=== PATIENT | female | born 1945 | race Caucasian/White ===

== ENCOUNTER 2022-07-15 23:37 | Emergency (ER) | payer OTHER, MEDICAID, SELFPAY ==
--- NOTE | ~2022-07-15 | XR_ITS ---
EXAMINATION: XR hip LT min 3V w AP pelvis DATE: 07/16/2022 01:00 INDICATION: Left hip pain. TECHNIQUE: An anteroposterior view of the pelvis and 2 views of left hip were obtained. COMPARISON: None. FINDINGS: There is lumbar dextrocurvature and severe spondylosis. No fracture. There is mild osteoart hritis of the hips. Surgical clips overlie right abdomen. IMPRESSION: 1. Mild osteoarthritis of the hips. Reviewed, dictated and finalized at location A.
--- NOTE | ~2022-07-15 | XR_ITS ---
EXAMINATION: XR ankle LT 2V DATE: 07/16/2022 01:00 INDICATION: Left ankle pain. TECHNIQUE: 2 views of left ankle were obtained. COMPARISON: None. FINDINGS: Pes planus is noted. There is diffuse osteopenia. There are lucencies in calcaneus. There i s moderate midfoot osteoarthritis. IMPRESSION: 1. Lucencies in calcaneus, which are indeterminate for fracture. Sensitivity and specificity are decr eased by osteopenia. Consider CT. 2. Moderate midfoot osteoarthritis. 3. Pes planus. Reviewed, dictated and finalized at location A. IMPRESSION: 1. Lucencies in calcaneus, which are indeterminate for fracture. Sensitivity an d specificity are decreased by osteopenia. Consider CT. 2. Moderate midfoot osteoarthritis. 3. Pes planus.
--- NOTE | ~2022-07-15 | XR_ITS ---
EXAMINATION: XR knee LT 3V DATE: 07/16/2022 01:01 INDICATION: Left knee pain. TECHNIQUE: 3 views of left knee were obtained. COMPARISON: None. FINDINGS: Bone alignment is normal. No fracture. There are erosions in the patellofemoral compartment . There is moderate osteoarthritis of medial and lateral compartments. There is a large knee joint ef fusion. IMPRESSION: 1. Erosions in the patellofemoral compartment suspicious for inflammatory or septic arthritis. 2. Moderate left knee osteoarthritis. 3. Large knee joint effusion. Consider knee joint aspiration. Reviewed, dictated and finalized at location A. IMPRESSION: 1. Erosions in the patellofemoral compartment suspicious for inflammatory or se ptic arthritis. 2. Moderate left knee osteoarthritis. 3. Large knee joint effusion. Consider knee joint aspiration.
[2022-07-15 23:42] VITALS: BP 97/67; PULSE 93; RESP 18; TEMP 36.7; O2SAT 95
--- NOTE | 2022-07-16 00:04 | ED.LOWEXIN ---
HPI - Extremity Injury (Lower) General Chief Complaint: Extremity Injury, Lower <Demi Lopez PA-C - Last Filed: 07/16/22 02:22> Stated Complaint: KNEE PAIN <Demi Lopez PA-C - Last Filed: 07/16/22 02:22> Time Seen by Provider: 07/15/22 23:43 <Demi Lopez PA-C - Last Filed: 07/16/22 02:22> Source: patient <CHUCK Lee Last Filed: 07/16/22 02:22> Mode of arrival: EMS <Demi Lopez PA-C - Last Filed: 07/16/22 02:22> Limitations: no limitations <Demi Lopez PA-C - Last Filed: 07/16/22 02:22> History of Present Illness HPI Narrative: This is a 76 year old female that presents to the ER for left knee pain. No known injury or trauma. Reports when she woke up she started to have pain in the left hip and knee. She is unable to bend at the knee due to pain. Reports swelling to the knee. Denies erythema or numbness. <Demi Lopez PA-C - Last Filed: 07/16/22 02:22> Related Data Allergies/Adverse Reactions: Allergies Allergy/AdvReac Type Severity Reaction Status Date / Time methylprednisolone Allergy Unknown Verified 07/16/22 00:09 [From Solu-Medrol] Sulfa (Sulfonamide Allergy Unknown Verified 07/16/22 00:08 Antibiotics) <Demi Lopez PA-C - Last Filed: 07/16/22 02:22> Review of Systems Review of Systems: CONSTITUTIONAL: Denies fever MUSCULOSKELETAL: Reports joint pain, and myalgia. NEUROLOGIC: Denies numbness <Demi Lopez PA-C - Last Filed: 07/16/22 02:22> All systems reviewed & are unremarkable except as noted in HPI and below <Demi Lopez PA-C - Last Filed: 07/16/22 02:22> [facility] Past Medical History Medical History: Medical History (Updated 07/16/22 @ 02:10 by Demi L. Lopez, PA-C) History of hypertension <Demi Lopez PA-C - Last Filed: 07/16/22 02:22> Social History Social History: Social History (Updated 07/16/22 @ 00:07 by Demi Lopez PA-C) Substance use: never <Demi Lopez PA-C - Last Filed: 07/16/22 02:22> Exam Narrative: GENERAL: Well-appearing, well-nourished, and in no acute distress. HEAD: Normocephalic, atraumatic. EYES: EOMI. CHEST: No respiratory distress. HEART: Regular rate EXTREMITIES: Edema about the left knee anteriorly, no overlying erythema or warmth. Patient holding knee in a flexed position. Normal DP pulses. Normal sensation SKIN: Warm, dry, no rash. NEURO: No focal deficits. Alert and oriented x3. PSYCH: Normal mood and affect <Demi Lopez PA-C - Last Filed: 07/16/22 02:22> Course MUSIC MINISTRIES DIRECTOR/PA Physician Supervision For this patient encounter, I reviewed the MUSIC MINISTRIES DIRECTOR or PA documentation, treatment plan, and medical decision making. I was available for consultation as needed. <Hafsa Cool MD - Last Filed: 07/16/22 23:03> Vital Signs Vital signs: Vital Signs Temperature 98.0 F 07/15/22 23:42 Pulse Rate 93 07/15/22 23:42 Respiratory Rate 18 07/15/22 23:42 Blood Pressure 97/67 L 07/15/22 23:42 Pulse Oximetry 95 07/15/22 23:42 Oxygen Delivery Room Air 07/15/22 23:42 Temperature 98.0 F 07/15/22 23:42 Pulse Rate 90 07/16/22 04:37 Respiratory Rate 16 07/16/22 04:37 Blood Pressure 100/80 07/16/22 04:37 Pulse Oximetry 94 07/16/22 04:37 Oxygen Delivery Room Air 07/15/22 23:42 <Demi Lopez PA-C - Last Filed: 07/16/22 02:22> Vital Signs Temperature 98.0 F 07/15/22 23:42 Pulse Rate 93 07/15/22 23:42 Respiratory Rate 18 07/15/22 23:42 Blood Pressure 97/67 L 07/15/22 23:42 Pulse Oximetry 95 07/15/22 23:42 Oxygen Delivery Room Air 07/15/22 23:42 Temperature 98.0 F 07/15/22 23:42 Pulse Rate 90 07/16/22 04:37 Respiratory Rate 16 07/16/22 04:37 Blood Pressure 100/80 07/16/22 04:37 Pulse Oximetry 94 07/16/22 04:37 Oxygen Delivery Room Air 07/15/22 23:42 <Hafsa Cool MD - Last Filed: 07/16/22 23:03> MDM - Extremity Injury (Low
[2022-07-16] MEDS: ONDANSETRON INJ 4 MG/2 ML VIAL IV PUSH (00:55)
[2022-07-16] MEDS: MORPHINE SULFATE (*CRX) 2 MG/ML INJ IV PUSH (00:55)
[2022-07-16 01:15] VITALS: BP 102/72; PULSE 78; RESP 18; O2SAT 95
[2022-07-16 02:46] VITALS: BP 116/79; PULSE 89; RESP 18; O2SAT 96
[2022-07-16 04:37] VITALS: BP 100/80; PULSE 90; RESP 16; O2SAT 94
== END 2022-07-16 05:30 ==
PROVIDERS: Emergency Provider Emergency Medicine; PCP Internal Medicine
DX: M17.12 Unilateral primary osteoarthritis, left knee (principal); I10 Essential (primary) hypertension; M21.42 Flat foot [pes planus] (acquired), left foot; M19.072 Primary osteoarthritis, left ankle and foot; M16.0 Bilateral primary osteoarthritis of hip
CPT/HCPCS: 73502; 73562; 73600; 96374; 96375; 99284; J2270; J2405

== ENCOUNTER 2022-07-28 02:38 | Inpatient (IN) | payer OTHER, MEDICAID, SELFPAY ==
[2022-07-28] VITALS (41 sets, daily range): BP systolic 99–142; BP diastolic 54–98; PULSE 65–160; RESP 9–28; TEMP 36.6–37.1; O2SAT 95–100; BMI 29.5
--- NOTE | ~2022-07-28 | US_ITS ---
EXAMINATION: US knee asp inj w image LT DATE: 07/28/2022 13:02 INDICATION: Complex left knee joint effusion TECHNIQUE: The procedure including the risks and benefits was discussed with the patient. Risks discu ssed included bleeding and infection. The patient understood the risks and agreed to proceed. The sk in overlying the suprapatellar pouch of the left knee was prepped and draped in usual sterile fashion . Anesthetic was administered with 1% lidocaine subcutaneously. A 20 gauge spinal needle was advanc ed under continuous ultrasound observation into the anechoic portion of the suprapatellar pouch. A sc ant amount of dark maroon-colored fluid was aspirated and sent to lab for cultures. The needle was r emoved and the entry site was cleaned and dressed. Post procedure ultrasound demonstrated no hemorrh age. FINDINGS: Ultrasound images demonstrate prominent distention of the suprapatellar pouch which demonst rates mixed hypoechoic and anechoic echogenicity. Subsequent images demonstrate the needle position w ithin the most anechoic portion of the suprapatellar pouch. IMPRESSION: 1. Successful Ultrasound-guided aspiration at the suprapatellar pouch of the right knee yielding a sc ant amount of dark maroon-colored fluid. This along with the ultrasound and CT appearance favors a li kirsten combination of organized clot and synovitis. Follow up with findings from the cultures of the ob tained fluid. Reviewed, dictated and finalized at location A. IMPRESSION: 1. Successful Ultrasound-guided aspiration at the suprapatellar pouch of the ri ght knee yielding a scant amount of dark maroon-colored fluid. This along with the ultrasound and CT appearance favors a likely combination of organized clot and synovitis. Follow up with findings from the cultures of the obtained fluid.
--- NOTE | ~2022-07-28 | CT_ITS ---
EXAMINATION: CT knee LT wo con DATE: 07/28/2022 08:30 INDICATION: Assess for fracture. TECHNIQUE: High resolution computed tomography (CT) of the left knee was performed without intravenou s contrast. Additional sagittal and coronal reconstructions were performed. Automated exposure contro l and iterative reconstruction technique were employed. The dose-length product was 554.21 mGy-cm. COMPARISON: Left knee radiographs dated 07/28/2022 FINDINGS: Large left knee joint effusion with heterogeneous increased attenuation which could be due to blood, pus consistent with septic arthritis or bulky synovitis. Lateral patellar subluxation. No fracture. A dvanced osteoarthritis at the patellofemoral articulation with prominent remodeling with loss of bone stock at the patella and trochlea with lateral sided predominance. This along with osteopenia, for t he indiscernible cortical margin along the inferior patella. Large lateral sided marginal osteophyte which accounts for the ossific density of concern on the prior radiographs. Chondrocalcinosis in the medial and lateral compartments with severe joint space narrowing the medial compartment and with mod erate size marginal osteophytes in all 3 compartments. There are diffuse muscular atrophy in the visu alized distal thigh and proximal calf likely related to combination of age and disuse. IMPRESSION: 1. Large complex left knee joint effusion with heterogeneous increased density potentially representi ng blood, septic arthritis or bulky reactive synovitis. Correlate with arthrocentesis. 2. 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 No fra cture or other acute osseous abnormality. Reviewed, dictated and finalized at location A. IMPRESSION: 1. Large complex left knee joint effusion with heterogeneous increased density potentially representing blood, septic arthritis or bulky reactive synovitis. C orrelate with arthrocentesis. 2. Tricompartmental osteoarthritis, advanced in the patellofemoral compartment with prominent remodeling with osteolysis which account for the imaging appeara nce at the lower pole of the patella. No fracture or other acute osseous abnorm ality.
--- NOTE | ~2022-07-28 | CT_ITS ---
EXAMINATION: CT brain wo con DATE: 08/01/2022 13:51 INDICATION: Changed level of consciousness. History of hypertension. TECHNIQUE: Computed tomography (CT) of the head was performed without intravenous contrast. The mA wa s adjusted according to patient size. Iterative reconstruction technique was employed. Exam dose: 60 5.33 mGy-cm total exam DLP. COMPARISON: None FINDINGS: Bilateral carotid siphon internal carotid artery calcifications. There is nonspecific dimin ished attenuation of the cerebral white matter, likely due to chronic small vessel ischemic changes. 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 No intracranial mass lesion or hemorrhage, midline shift or mass effect effect. There is central and cortical cerebral and cerebellar atrophy. No subdural or epidural hematoma. Bilateral hyperostosis frontalis interna, not likely of clinical significant. Included paranasal sinu ses are normally developed and aerated. There are bilateral mastoid effusions. 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 Reviewed, dictated and finalized at location A.
--- NOTE | ~2022-07-28 | XR_ITS ---
EXAMINATION: XR knee LT 3V DATE: 08/02/2022 13:01 INDICATION: Left knee pain. TECHNIQUE: 3 views of left knee were obtained. COMPARISON: Left knee radiographs 07/28/2022, CT 07/28/2022 FINDINGS: Bone alignment is normal. No fracture. There is moderate osteoarthritis of medial and later al compartments. There are erosions of the patellofemoral compartment. There is chondrocalcinosis of the menisci. There is a moderate-sized knee joint effusion versus synovitis. IMPRESSION: 1. Erosions of patellofemoral compartment, consistent with inflammatory arthritis. 2. Moderate osteoarthritis of medial and lateral compartments. 3. Moderate-sized knee joint effusion versus synovitis. Reviewed, dictated and finalized at location A. IMPRESSION: 1. Erosions of patellofemoral compartment, consistent with inflammatory arthrit is. 2. Moderate osteoarthritis of medial and lateral compartments. 3. Moderate-sized knee joint effusion versus synovitis.
--- NOTE | ~2022-07-28 | US_ITS ---
EXAMINATION: US venous doppler [facility] DATE: 07/28/2022 07:43 INDICATION: Left lower limb pain and swelling. TECHNIQUE: Grayscale ultrasound images without and with compression and Doppler ultrasound images of the left lower extremity veins were obtained. COMPARISON: None. FINDINGS: The visualized portions of left common femoral vein, profunda (deep) femoral vein, femoral vein, popl iteal vein, peroneal veins, posterior tibial veins, gastrocnemius vein and greater saphenous vein out flow are patent. IMPRESSION: 1. No deep venous thrombosis in the left lower limb. Reviewed, dictated and finalized at location A.
--- NOTE | ~2022-07-28 | CT_ITS ---
EXAMINATION: CTA chest PE protocol DATE: 07/28/2022 08:31 INDICATION: Pulmonary embolism. Cough and abnormal chest radiograph. TECHNIQUE: Computed tomography (CT) pulmonary angiogram of the chest was performed with 100 mL Omnipa que-350 intravenous contrast. Additional 3D reconstructions utilizing coronal maximum intensity proje ction (MIP) were performed. Automated exposure control and iterative reconstruction technique were em ployed. The dose-length product was 491.69 mGy-cm. COMPARISON: None FINDINGS: Excellent contrast opacification of the pulmonary arteries. There is mild streak artifact from dense contrast in the superior vena cava and right atrium. Mild scattered respiratory motion artifact which does not significantly limit evaluation. No pulmonary embolism. Eventration of the right hemidiaphra gm with volume loss in the right hemithorax. Mild groundglass opacity and some smooth septal line thi ckening in the basilar and dependent aspect of the lower lobes consistent with mild pulmonary edema. There are couple centimeters elongated nodular opacities measuring 1.8 x 1.0 cm at the left apex and 2.1 x 0.8 cm in the anterior segment of the right upper lobe. No pleural effusion. Heart size is norm al. Atherosclerotic coronary artery calcifications. Enlargement of the central pulmonary arteries con sistent with pulmonary arterial hypertension. No pathologically enlarged thoracic lymphadenopathy. Ch olecystectomy clips the gallbladder fossa. Postoperative change of right hemicolectomy with ileocolic anastomosis in the right abdomen. Mild upper thoracic levoscoliosis with moderate spondylosis. IMPRESSION: 1. No pulmonary embolism. 2. 1.8 x 1.0 and 2.1 x 0.8 cm nodules in the left upper and right upper lobes respectively. Would rec ommend correlation with any prior outside imaging and consider PET/CT for further evaluation. 3. Likely combination of mild atelectasis and mild pulmonary edema in the dependent lower lungs. 4. Enlargement of the central pulmonary arteries consistent with pulmonary arterial hypertension.. Reviewed, dictated and finalized at location A. IMPRESSION: 1. No pulmonary embolism. 2. 1.8 x 1.0 and 2.1 x 0.8 cm nodules in the left upper and right upper lobes r espectively. Would recommend correlation with any prior outside imaging and con supervisor meter shop PET/CT for further evaluation. 3. Likely combination of mild atelectasis and mild pulmonary edema in the depen dent lower lungs. 4. Enlargement of the central pulmonary arteries consistent with pulmonary amna rial hypertension..
--- NOTE | ~2022-07-28 | XR_ITS ---
EXAMINATION: XR knee LT 3V DATE: 07/28/2022 04:13 INDICATION: Left knee pain TECHNIQUE: Anteroposterior, oblique and crosstable lateral views of the left knee were obtained COMPARISON: 07/16/2022 FINDINGS: Diffuse osteopenia. Alignment is normal aside from elevation of the patella which is due to the prese nce of a large knee joint effusion. There appears to be some remodeling of the patellar and trochlear articular surfaces suggesting severe osteoarthritis. No change in absent versus indistinct cortical margin along the lower pole of the patella which could be related to fracture or erosion. Persistent ossific density lesion between the patella and the cephalad margin of the trochlea which could repres ent either a large osteophyte, loose osteochondral body or displaced fracture fragment. Or chondrocal cinosis at the medial and lateral compartments. There is at least moderate joint space narrowing in t he medial compartment which could be underestimated on nonweightbearing imaging. Large left knee join t effusion without layering lipohemarthrosis. Soft tissues are unremarkable. IMPRESSION: 1. Absent versus indistinct cortical margin along the inferior patella which raises concern for eithe r displaced fracture or erosion such as in the setting of an inflammatory or infectious arthritis. Co nsider further evaluation with CT and joint aspiration. Reviewed, dictated and finalized at location A. IMPRESSION: 1. Absent versus indistinct cortical margin along the inferior patella which ra ises concern for either displaced fracture or erosion such as in the setting of an inflammatory or infectious arthritis. Consider further evaluation with CT a nd joint aspiration.
--- NOTE | ~2022-07-28 | XR_ITS ---
EXAMINATION: XR chest 1V portable DATE: 07/28/2022 04:13 INDICATION: Cough TECHNIQUE: frontal view of the chest was obtained. COMPARISON: None FINDINGS: Elevation the right hemidiaphragm. Asymmetric pulmonary vascular congestion and increased interstitia l pattern in the right lung relative to the left . No pleural effusion or pneumothorax. The cardiomed iastinal silhouette is normal. Cholecystectomy clips in right upper quadrant. IMPRESSION: 1. Pulmonary vascular congestion and increased interstitial pattern in the right lung relative to the left which could be due to asymmetric pulmonary edema, pneumonia, left-sided pulmonary embolism or a rtifact of atelectasis and bronchovascular crowding resulting from the elevation the right hemidiaphr ag. Reviewed, dictated and finalized at location A. IMPRESSION: 1. Pulmonary vascular congestion and increased interstitial pattern in the righ t lung relative to the left which could be due to asymmetric pulmonary edema, p neumonia, left-sided pulmonary embolism or artifact of atelectasis and bronchov ascular crowding resulting from the elevation the right hemidiaphragm.
--- NOTE | ~2022-07-28 | XR_ITS ---
XR hip LT 2V w AP pelvis 07/28/2022 04:13 Indication: Left hip pain Procedure: 4 views of the left hip including AP pelvis Comparison: No prior studies for comparison. Findings: Pelvic rings are intact. No acute fracture or traumatic malalignment. There is mild osteoar thritis of the hips. There is lower lumbar spondylosis partially visualized. No focal soft tissue abn ormality. Osteopenia. Impression: 1: No acute fracture. Reviewed, dictated and finalized at location B. Impression: 1: No acute fracture.
--- NOTE | 2022-07-28 03:33 | ECG_ITS ---
Measurements Intervals [place] Rate: 96 P: [place]: 0 QRS: 12 QRSD: 74 T: 50 QT: 363 QTc: 460 Interpretive Statements UNDERLYING RHYTHM IS UNINTERPRETABLE DUE TO SIGNIFICANT BASELINE ARTIFACT LOW QRS VOLTAGE IN EXTREMITY LEADS [QRS DEFLECTION < 0.5 mV IN LIMB LEADS] NO PREVIOUS ECG AVAILABLE FOR COMPARISON Electronically Signed On 07-28-2022 14:22:14 CDT by Miguel Angel Carvalho M.D.
--- NOTE | 2022-07-28 03:49 | ED.GENADULT ---
HPI - General Adult General Chief complaint: Extremity Problem,Nontraumatic <Supa Wlater MD - Last Filed: 07/28/22 06:33> Stated complaint: LT KNEE PAIN <Supa Walter MD - Last Filed: 07/28/22 06:33> Time Seen by Provider: 07/28/22 03:16 <Supa Walter MD - Last Filed: 07/28/22 06:33> History of Present Illness HPI narrative: Patient 76-year-old female who presents to emergency department with chief complaint of left lower extremity pain patient reports that she has been having some pain in her knee for some time and reports that the pain has gotten worse the patient states that it hurts whenever she moves her lower extremity. Patient reports no trauma reports that she does have history of arthritis <Supa Walter MD - Last Filed: 07/28/22 06:33> Related Data Home medications: Home Medications Medication Instructions Recorded Confirmed atorvastatin 20 mg tablet mg 07/28/22 07/28/22 balsalazide 750 mg capsule mg PO 07/28/22 digoxin 125 mcg (0.125 mg) tablet 07/28/22 escitalopram oxalate 10 mg tablet mg 07/28/22 potassium chloride 20 mEq meq PO 07/28/22 tablet,extended release(part/cryst) rivaroxaban 20 mg tablet (Xarelto) mg 07/28/22 <Supa Walter MD - Last Filed: 07/28/22 06:33> Allergies/adverse reactions: Allergies Allergy/AdvReac Type Severity Reaction Status Date / Time methylprednisolone Allergy Unknown Verified 07/16/22 00:09 [From Solu-Medrol] Sulfa (Sulfonamide Allergy Unknown Verified 07/16/22 00:08 Antibiotics) <Supa Walter MD - Last Filed: 07/28/22 06:33> Review of Systems Review of Systems: A 10 system review of systems was completed on the patient and is negative except for what is stated in the HPI. Nursing and ancillary documentation was reviewed. <Supa Walter MD - Last Filed: 07/28/22 06:33> [facility] Past Medical History Medical History: Medical History History of hypertension <Supa Walter MD - Last Filed: 07/28/22 06:33> Social History Social History: Social History Substance use: never <Supa Walter MD - Last Filed: 07/28/22 06:33> Exam Narrative: GENERAL: Well-appearing, well-nourished, and in no acute distress. HEAD: Normocephalic, atraumatic. EYES: PERRLA and EOMI. ENT: Nares clear, no rhinorrhea or epistaxis. Mucous membranes moist. NECK: Supple. CHEST: Clear to auscultation. No respiratory distress. HEART: Regular rate and rhythm. No murmur heard. Normal peripheral pulses. ABDOMEN: Soft, nontender, nondistended, normal active bowel sounds. EXTREMITIES: Normal range of motion. No edema. SKIN: Warm, dry, no rash. NEURO: No focal deficits. Alert and oriented x3. PSYCH: Normal mood and affect. <Supa Walter MD - Last Filed: 07/28/22 06:33> Course Course Emergency Course: Patient's x-ray showed no evidence of fracture patient did have a baby [employer] patient is a resident of a local nursing facility venous duplex has been ordered will be completed tomorrow be sent in with a provider <Supa Walter MD - Last Filed: 07/28/22 06:33> Consultations Consultation #1: Dr. Munoz <Pete Maria MD - Last Filed: 07/28/22 13:51> Date: 07/28/22 <Pete Maria MD - Last Filed: 07/28/22 13:51> Time: 13:46 <Pete Maria MD - Last Filed: 07/28/22 13:51> Vital Signs Vital signs: Vital Signs Temperature 37.1 C 07/28/22 02:41 Pulse Rate 90 07/28/22 02:41 Respiratory Rate 16 07/28/22 02:41 Blood Pressure 117/87 07/28/22 02:41 Pulse Oximetry 99 07/28/22 02:41 Oxygen Delivery Room Air 07/28/22 02:41 Temperature 37.1 C 07/28/22 02:41 Pulse Rate 65 07/28/22 10:37 Respiratory Rate 22 H 07/28/22 10:37 Blood Pressure 109/59
[2022-07-28 03:53] LABS: Hematocrit 40.6 % (37.0-47.0); Hemoglobin 12.8 g/dL (12.0-15.0); Mean Corpuscular HGB Conc 31.5 g/dl (32-36); Mean Corpuscular Hemoglobin 25.5 pg (26-34); Mean Platelet Volume 8.6 fl (7.4-10.4); Platelet Count Result 483 k/mm3 (150-375); Red Blood Count 5.01 M/mm3 (4.2-5.4); Red Cell Distribution Width 26.7 % (11.5-14.5); White Blood Count 12.1 K/mm3 (4.5-10.0)
[2022-07-28 04:02] LABS: Alanine Aminotransferase 14 U/L (6-35); Albumin Level 3.1 g/dL (3.5-5.1); Alkaline Phosphatase 129 U/L (38-126); Anion Gap 8 mmol/L (8-16); Aspartate Amino Transferase 31 U/L (14-36); Bilirubin,Total 0.9 mg/dL (0.2-1.3); Blood Urea Nitrogen 7 mg/dL (7-17); Calcium 8.2 mg/dL (8.4-10.2); Carbon Dioxide 27 mmol/L (22-30); Chloride 103 mmol/L (98-107); Estimated CRCL calculation 101 ml/min; Estimated Glomerular Filt Rate > 60; Glucose 131 mg/dL (65-110); Potassium 4.3 mmol/L (3.4-5.0); Sodium 138 mmol/L (137-145)
[2022-07-28 04:16] LABS: Troponin I < 0.012 ng/mL (0.000-0.034)
[2022-07-28 04:17] LABS: INR 3.6; Prothrombin Time 34.8 Seconds (11.1-14.7)
[2022-07-28 04:18] LABS: Partial Thromboplastin Time 48.9 SECONDS (22.3-36.8)
[2022-07-28 04:19] LABS: Band Neutrophils Percent 2 % (0-6); Lymphocytes Absolute Manual 1.33 K/mm3 (1.1-4.5); Monocytes Absolute Manual 0.48 K/mm3 (0.1-0.90); Monocytes Percent Manual 4 % (3-9); Neutrophils Absolute Manual 10.28 K/mm3 (1.7-7.2); Neutrophils Percent Manual 83 % (46-73); Platelet Clumps Present; Platelet Estimate Adequate (Adequate); Sickle Cells 2+ (NORMAL); Total Cells Counted 100
[2022-07-28 04:20] LABS: Crenated RBC 2+ (NORMAL); Spherocytes 1+ (NORMAL)
[2022-07-28 04:21] LABS: Acanthocytes 2+ (NORMAL); Schistocytes None Seen (NORMAL)
[2022-07-28] MEDS: HYDROcodone/acetaminophen (*CRX) 5-325 MG TABLET 1 TAB PO (04:21)
[2022-07-28 04:33] LABS: D Dimer 2.01 ug/mL (<0.48)
--- NOTE | 2022-07-28 04:38 | ECG_ITS ---
Measurements Intervals [place] Rate: 97 P: [place]: 0 QRS: 22 QRSD: 78 T: 24 QT: 347 QTc: 443 Interpretive Statements UNDERLYING RHYTHM IS UNINTERPRETABLE DUE TO SIGNIFICANT BASELINE ARTIFACT COMPARED TO ECG 07/28/2022 03:39:13 NO SIGNIFICANT CHANGES Electronically Signed On 07-28-2022 14:25:53 CDT by Miguel Angel Carvalho M.D.
[2022-07-28 07:41] LABS: Troponin I < 0.012 ng/mL (0.000-0.034)
[2022-07-28] MEDS: ONDANSETRON INJ 4 MG/2 ML VIAL IV PUSH (13:51)
[2022-07-28] MEDS: MORPHINE SULFATE (*CRX) 4 MG/ML INJ IV PUSH (13:52)
--- NOTE | 2022-07-28 17:09 | ADMGEN ---
This patient, Edda Adame, was admitted to 2 Medical Room 240-01. Patient/family oriented to hospital policies and general routines including ID bracelet, bed and alarms, visiting hours, pain management, procedures, bathroom and other care routines, personal items, smoking policy, room service/diet, and visiting hours. Information on how to activate the Rapid Response Team has been discussed. Patient/Family are encouraged to report perceived risks to care and to ask questions if they do not understand what they are told or what they should do.
[2022-07-28] MEDS: SODIUM CHLORIDE 0.9% IV 1,000 ML 125 ML IV CONT (17:46)
--- NOTE | 2022-07-28 23:46 | PM.IMHP ---
H&P: HPI History of Present Illness Date/Time: 07/28/22 23:46 Chief Complaint: Left knee pain Narrative: This is a 76-year-old female patient who came to the emergency room with complaints of left knee swelling and pain. The patient stated this happened all of a sudden 2 days ago. She has not had any injury to that left knee. The patient has chronic knee pain but it became worse over the last 2 days. ER attempted to drain and the knee and was unable to obtain any fluid. Interventional Radiology did a joint aspiration with imaging.1. Successful Ultrasound-guided aspiration at the suprapatellar pouch of the right knee yielding a scant amount of dark maroon-colored fluid. This along with the ultrasound and CT appearance favors a likely combination of organized clot and synovitis. Follow up with findings from the cultures of the obtained fluid. Chest CTA was read as 1. No pulmonary embolism. 2. 1.8 x 1.0 and 2.1 x 0.8 cm nodules in the left upper and right upper lobes respectively. Would recommend correlation with any prior outside imaging and consider PET/CT for further evaluation. 3. Likely combination of mild atelectasis and mild pulmonary edema in the dependent lower lungs. 4. Enlargement of the central pulmonary arteries consistent with pulmonary arterial hypertension.. Knee CT was read as the following 1. Large complex left knee joint effusion with heterogeneous increased density potentially representing blood, septic arthritis or bulky reactive synovitis. Correlate with arthrocentesis. 2. 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 No fracture or other acute osseous abnormality. The patient was given Holton, morphine, Zofran, and started on vancomycin and Rocephin. Her white count was noted to be 12.1. Troponin negative x2 the patient is being admitted to observation status on the date of service of 07/28/2022. Review of Systems Review of Systems: See HPI All systems reviewed & are unremarkable except as noted in HPI and below Constitutional: Constitutional: Reports as per HPI and Reports no additional constitutional complaints Eyes: Eyes: Reports as per HPI and Reports no additional eye complaints ENT: Reports system reviewed and no additional complaints, except as documented and Reports Normal hearing present Cardiovascular: Cardiovascular: Reports no additional cardiovascular complaints Respiratory: Respiratory: Reports no additional respiratory complaints and Reports no additional respiratory complaints Gastrointestinal: Gastrointestinal: Reports as per HPI and Reports no additional gastrointestinal complaints Musculoskeletal: Musculoskeletal: Reports no additional musculoskeletal complaints Integumentary/Breasts: Skin/Breast: Reports system reviewed and no additional complaints, except as docu and Reports as per HPI Neurologic: Reports system reviewed and no additional complaints, except as documented, Reports as per HPI and Reports Normal hearing present Psychiatric: Psychiatric: Reports no additional psychiatric complaints and Reports as per HPI Endocrine: Endocrine: Reports no additional endocrine complaints Hematologic/Lymphatic: Hematologic/Lymphatic: Reports no additional hematologic/lymphatic complaints Allergic/Immunologic: Allergic/Immunologic: Reports no additional allergic/immunologic complaints PMFSH Past Medical History Medical History (Updated 07/29/22 @ 00:44 by Vandana Estes NP) Atrial fibrillation Chronic GERD Depression with anxiety History of hypertension Hyperlipidemia Surgical History Surgical History (Updated 07/29/22 @ 00:33 by Vandana Estes NP) History of appendectomy Hx of cholecystectomy Family History Family History (Updated 07/29/22 @ 00:35 by Vandana Estes NP) Father Hypertension Social History Social History (Upda
[2022-07-28] MEDS: HYDROmorphone HCL INJ (*CRX) 1 MG/ML SYR 0.5 MG IV PUSH (23:57)
[2022-07-29] MEDS: SODIUM CHLORIDE 0.9% IV 1,000 ML 125 ML IV CONT (03:29)
[2022-07-29 04:41] VITALS: BP 112/69; PULSE 78; RESP 16; TEMP 36.7; O2SAT 96
[2022-07-29 05:34] LABS: Basophils Percent Auto 0.6 % (0.2-1.2); Eosinophils Absolute Auto 0.2 K/mm3 (0-0.3); Eosinophils Percent Auto 2.4 % (0-4.4); Hematocrit 32.4 % (37.0-47.0); Immature Granulocyte Absolute 0.03 K/mm3 (0.00-0.031); Immature Granulocyte Percent A 0.4 % (0-0.5); Lymphocytes Absolute Auto 1.88 K/mm3 (0.9-3.2); Lymphocytes Percent Auto 26.2 % (18.3-44.2); Mean Corpuscular HGB Conc 30.9 g/dl (32-36); Monocytes Absolute Auto 0.8 K/mm3 (0.1-0.6); Monocytes Percent Auto 10.4 % (2.6-8.5); Neutrophils Absolute Auto 4.3 K/mm3 (1.3-6.7); Platelet Count Result 382 k/mm3 (150-375); Red Cell Distribution Width 26.5 % (11.5-14.5); White Blood Count 7.2 K/mm3 (4.5-10.0)
[2022-07-29 05:57] LABS: Alanine Aminotransferase 9 U/L (6-35); Albumin Level 2.2 g/dL (3.5-5.1); Alkaline Phosphatase 83 U/L (38-126); Anion Gap 1 mmol/L (8-16); Aspartate Amino Transferase 22 U/L (14-36); Bilirubin,Total 0.7 mg/dL (0.2-1.3); Blood Urea Nitrogen 6 mg/dL (7-17); Calcium 7.6 mg/dL (8.4-10.2); Carbon Dioxide 31 mmol/L (22-30); Chloride 103 mmol/L (98-107); Estimated CRCL calculation 79 ml/min; Estimated Glomerular Filt Rate > 60; Glucose 81 mg/dL (65-110); Magnesium 1.7 mg/dL (1.6-2.3); Sodium 135 mmol/L (137-145)
[2022-07-29 07:44] LABS: Anisocytosis 2+ (NORMAL); Ovalocytes 2+ (NORMAL); Platelet Estimate Adequate (Adequate); Schistocytes 1+ (NORMAL); Target Cells 1+ (NORMAL)
[2022-07-29 07:45] LABS: Crenated RBC 1+ (NORMAL)
[2022-07-29 08:39] VITALS: PULSE 79
[2022-07-29] MEDS: DIGOXIN TAB 125 MCG TABLET PO (08:39)
[2022-07-29] MEDS: dilTIAZem HCL CD 180 MG CAP.ER.24H PO (08:39)
[2022-07-29] MEDS: FLUTICASONE PROPIONATE 0.05% NA SPR 16 GM BTL (*BKC) 1 SPRAY NASAL ×2 (08:40→16:17)
[2022-07-29] MEDS: PANTOPRAZOLE 40 MG TABLET PO (08:40)
[2022-07-29] MEDS: MULTIVITAMINS /C LUTEIN (CENTRUM SILVER) TABLET *BKC 1 TAB PO (08:40)
[2022-07-29] MEDS: TAMSULOSIN HCL 0.4 MG CAPSULE PO (08:40)
[2022-07-29] MEDS: POTASSIUM CHLORIDE 20 MEQ TABLET.ER PO ×2 (08:41→16:17)
[2022-07-29 09:12] LABS: Free T4 Free Thyroxine Reflex 1.29 ng/dL (0.78-2.19)
[2022-07-29 10:03] LABS: Total Triiodothyronine (T3) 0.71 NG/ML (0.97-1.69)
--- NOTE | 2022-07-29 10:35 | PM.CNOR ---
Assessment and Plan Assessment and plan (1) Knee pain, left: Qualifiers: Chronicity: acute Qualified Code(s): M25.562 - Pain in left knee Code(s): M25.562 - Pain in left knee Status: Acute (2) Knee effusion, left: Code(s): M25.462 - Effusion, left knee Status: Acute Assessment and Plan: Spontaneous bleed left knee. Patient on Xarelto. Aspirate negative for organisms. Cultures pending. Patient is afebrile. White count normal. Quite a bit of left knee pain. Recommend ice, Nigel wrap and pain control. PT/OT with weight-bearing as tolerated. Await final culture results. (3) Degenerative arthritis of left knee: Qualifiers: Osteoarthritis type: primary Qualified Code(s): M17.12 - Unilateral primary osteoarthritis, left knee Code(s): M17.12 - Unilateral primary osteoarthritis, left knee Status: Acute History of Present Illness HPI Consult date: 07/29/22 Requesting physician: Pete Maria MD Consult reason: joint pain Chief complaint: left knee intractable Narrative: 76-year-old woman with 1 week history of left knee pain. No known injury. Initially seen in the emergency room a week ago with left knee swelling and pain. Discharged back to group home. Return to emergency room yesterday with continued swelling pain. Aspirate performed in the emergency room. Admitted for further care. Patient complains of severe pain left knee with movement. Difficulty bearing weight. Denies injury or known cause. Review of Systems Constitutional: Constitutional: Denies fever(s) Eyes: Eyes: Denies blurry vision ENT: Reports Normal hearing present Cardiovascular: Cardiovascular: Denies chest pain and Denies dyspnea Respiratory: Respiratory: Denies dyspnea and Denies wheezing Gastrointestinal: Gastrointestinal: Denies abdominal pain Genitourinary: Genitourinary: Denies urinary urgency Musculoskeletal: Musculoskeletal: Reports as per HPI and Denies numbness Integumentary/Breasts: Skin/Breast: Denies changing lesions and Denies sores Neurologic: Reports Normal hearing present, Denies behavioral changes, Denies confusion, Denies numbness and Denies convulsions Psychiatric: Psychiatric: Denies behavioral changes, Denies confusion and Denies hallucinations Endocrine: Endocrine: Denies heat intolerance Hematologic/Lymphatic: Hematologic/Lymphatic: Denies easy bleeding Allergic/Immunologic: Allergic/Immunologic: Denies wheezing [facility] Past Medical History Medical History (Updated 07/29/22 @ 10:40 by Cuate Munoz MD) Atrial fibrillation Chronic GERD Degenerative arthritis of left knee Depression with anxiety History of hypertension Hyperlipidemia Knee effusion, left Surgical History Surgical History (Updated 07/29/22 @ 00:33 by Vandana Estes NP) History of appendectomy Hx of cholecystectomy Family History Family History (Updated 07/29/22 @ 00:35 by Vandana Estes NP) Father Hypertension Social History Social History (Updated 07/29/22 @ 00:36 by Vandana Estes NP) Social History: The patient is and has 2 children. She is retired from being a real estate sales associate. The patient denies tobacco alcohol or illicit drugs. She does not have a durable power county attorney for healthcare. Code status full code Smoking status: Unknown if ever smoked Alcohol intake: unknown Substance use: unknown Substance use type: unknown Spiritual care concerns: No Meds Home Medications and Allergies Home Medications Medication Instructions Recorded Confirmed Type albuterol sulfate 90 mcg/actuation 2 puff inhalation Q4H PRN Dyspnea 07/28/22 07/28/22 History aerosol inhaler atorvastatin 20 mg tablet 20 mg PO HS 07/28/22 07/28/22 History balsalazide 750 mg capsule 750 mg PO TID 07/28/22 07/28/22 History bismuth [id number] 1 supp RECTAL TID PRN Hemorrhoids 07/28/22 07/28/22 History rectal suppository
[2022-07-29 10:54] VITALS: BMI 11.0
--- NOTE | 2022-07-29 11:02 | PM.IMPN ---
Progress Note: A&P Assessment and Plan (1) Septic arthritis of knee: Code(s): M00.9 - Pyogenic arthritis, unspecified Status: Acute Assessment and Plan: Orthopedic physician has been consulted. -the left knee has been drained per Interventional Radiology 1. Successful Ultrasound-guided aspiration at the suprapatellar pouch of the right knee yielding a scant amount of dark maroon-colored fluid. This along with the ultrasound and CT appearance favors a likely combination of organized clot and synovitis. Follow up with findings from the cultures of the obtained fluid. Patient was started on Rocephin and vancomycin. Blood cultures are pending Body fluid cultures are pending. Continue with analgesic 07/29/2022 interval history: 76-year-old female presents with complaint of pain in her left knee IR aspirated the knee and dark thick fluid was collected, patient complains of persistent pain her knee patient was seen by Orthopedics, patient did not need any surgical intervention and recommended conservative management with with brace and physical therapy, the knee aspirate was sent for culture will follow-up, meanwhile patient started on ceftriaxone and vancomycin, patient is allergic to codeine, will be flaxier 5 mg every 8 hours as needed and apply 2 Lidoderm patch on the knee and will continue to monitor (2) Atrial fibrillation: Code(s): I48.91 - Unspecified atrial fibrillation Status: Acute Assessment and Plan: -continue with digoxin -continue with Xarelto -rate is controlled. -continue with Cardizem (3) Chronic GERD: Code(s): K21.9 - Gastro-esophageal reflux disease without esophagitis Status: Acute Assessment and Plan: continue with omeprazole (4) Depression with anxiety: Code(s): F41.8 - Other specified anxiety disorders Status: Acute Assessment and Plan: -continue with Lexapro (5) Hyperlipidemia: Code(s): E78.5 - Hyperlipidemia, unspecified Status: Acute Assessment and Plan: Continue with Lipitor Subjective Date/time seen: 07/29/22 11:02 Left knee pain HPI-Narrative: This is a 76-year-old female patient who came to the emergency room with complaints of left knee swelling and pain.? The patient stated this happened all of a sudden 2 days ago.? She has not had any injury to that left knee.? The patient has chronic knee pain but it became worse over the last 2 days.? ER attempted to drain and the knee and was unable to obtain any fluid.? Interventional Radiology did a joint aspiration with imaging.1. Successful Ultrasound-guided aspiration at the suprapatellar pouch of the right knee yielding a scant amount of dark maroon-colored fluid. This along with the ultrasound and CT appearance favors a likely combination of organized clot and synovitis. Follow up with findings from the cultures of the obtained fluid.? Chest CTA was read as 1. No pulmonary embolism. 2. 1.8 x 1.0 and 2.1 x 0.8 cm nodules in the left upper and right upper lobes respectively. Would recommend correlation with any prior outside imaging and consider PET/CT for further evaluation. 3. Likely combination of mild atelectasis and mild pulmonary edema in the dependent lower lungs. 4. Enlargement of the central pulmonary arteries consistent with pulmonary arterial hypertension.. Knee CT was read as the following 1. Large complex left knee joint effusion with heterogeneous increased density potentially representing blood, septic arthritis or bulky reactive synovitis. Correlate with arthrocentesis. 2. 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 No fracture or other acute osseous abnormality. The patient was given [place], morphine, Zofran, and started on vancomycin and Rocephin.? Her white count was noted to be 12.1.? Troponin negative x2 the patien
--- NOTE | 2022-07-29 11:20 | PCPTNOTE ---
Attempted PT evaluation, Per RN, she requested PT waits to perform therapy until patient pain is better controlled. Will Follow.
[2022-07-29 14:14] VITALS: BP 112/58; PULSE 64; RESP 16; TEMP 36.4; O2SAT 97
[2022-07-29 19:32] VITALS: BP 124/60; PULSE 100; RESP 16; TEMP 37; O2SAT 98
[2022-07-29] MEDS: RIVAROXABAN 20 MG TABLET PO (20:12)
[2022-07-29] MEDS: ATORVASTATIN 20 MG TABLET PO (20:12)
[2022-07-29] MEDS: ESCITALOPRAM OXALATE 10 MG TABLET PO (20:12)
[2022-07-29] MEDS: HYDROmorphone HCL INJ (*CRX) 1 MG/ML SYR 0.5 MG IV PUSH (23:32)
[2022-07-30 03:41] LABS: Vancomycin Trough 15.4 ug/mL (10.0-20.0)
[2022-07-30 04:13] VITALS: BP 115/60; PULSE 100; RESP 16; TEMP 36.6; O2SAT 97
[2022-07-30] MEDS: HYDROmorphone HCL INJ (*CRX) 1 MG/ML SYR 0.5 MG IV PUSH (09:13)
[2022-07-30 09:15] VITALS: PULSE 94
[2022-07-30] MEDS: DIGOXIN TAB 125 MCG TABLET PO (09:15)
[2022-07-30] MEDS: TAMSULOSIN HCL 0.4 MG CAPSULE PO (09:15)
[2022-07-30] MEDS: PANTOPRAZOLE 40 MG TABLET PO (09:15)
[2022-07-30] MEDS: MULTIVITAMINS /C LUTEIN (CENTRUM SILVER) TABLET *BKC 1 TAB PO (09:15)
[2022-07-30] MEDS: dilTIAZem HCL CD 180 MG CAP.ER.24H PO (09:15)
--- NOTE | 2022-07-30 10:39 | PM.IMPN ---
Progress Note: A&P Assessment and Plan (1) Septic arthritis of knee: Code(s): M00.9 - Pyogenic arthritis, unspecified Status: Acute Assessment and Plan: Orthopedic physician has been consulted. -the left knee has been drained per Interventional Radiology 1. Successful Ultrasound-guided aspiration at the suprapatellar pouch of the right knee yielding a scant amount of dark maroon-colored fluid. This along with the ultrasound and CT appearance favors a likely combination of organized clot and synovitis. Follow up with findings from the cultures of the obtained fluid. Patient was started on Rocephin and vancomycin. Blood cultures are pending Body fluid cultures are pending. Continue with analgesic 07/30/2022 interval history: 76-year-old female presents with complaint of pain in her left knee on 07/28 upon arrival IR aspirated the knee and dark thick fluid was collected, no growth so far, patient complains of persistent pain her knee patient was seen by Orthopedics, patient does not need any surgical intervention and recommended conservative management, with brace and physical therapy, the knee aspirate was sent for culture will follow-up, and a blood culture no growth so far, meanwhile patient started on ceftriaxone and vancomycin, patient is allergic to codeine, will be flaxier 5 mg every 8 hours as needed and apply 2 Lidoderm patch on the knee and will continue to monitor (2) Atrial fibrillation: Code(s): I48.91 - Unspecified atrial fibrillation Status: Acute Assessment and Plan: -continue with digoxin -continue with Xarelto -rate is controlled. -continue with Cardizem (3) Chronic GERD: Code(s): K21.9 - Gastro-esophageal reflux disease without esophagitis Status: Acute Assessment and Plan: continue with omeprazole (4) Depression with anxiety: Code(s): F41.8 - Other specified anxiety disorders Status: Acute Assessment and Plan: -continue with Lexapro (5) Hyperlipidemia: Code(s): E78.5 - Hyperlipidemia, unspecified Status: Acute Assessment and Plan: Continue with Lipitor Subjective Date/time seen: 07/30/22 10:39 07/30/2022 interval history: 76-year-old female presents with complaint of pain in her left knee on 07/28 upon arrival IR aspirated the knee and dark thick fluid was collected, no growth so far, patient complains of persistent pain her knee patient was seen by Orthopedics, patient does not need any surgical intervention and recommended conservative management, with brace and physical therapy, the knee aspirate was sent for culture will follow-up, and a blood culture no growth so far, meanwhile patient started on ceftriaxone and vancomycin, patient is allergic to codeine, will be flaxier 5 mg every 8 hours as needed and apply 2 Lidoderm patch on the knee and will continue to monitor Review of Systems Review of Systems: All systems reviewed & are unremarkable except as noted in HPI and below Exam Narrative: elderly frail Patient is comfortable, NAD HEENT: eyes are clear and none icteric LUNGS: normal respiratory effort ABD: not distended Lower extremities: no edema Left knee in Nigel wrap. SKIN: nonjaundiced Neuro: grossly intact. Objective Data Vital Signs Vital Signs: Vital Signs - 24 hr 07/29/22 10:54 07/29/22 14:14 07/29/22 19:32 Temperature 97.6 F 98.6 F Pulse Rate 64 100 Respiratory Rate 16 16 Blood Pressure 112/58 L 124/60 Pulse Oximetry 97 98 Oxygen Delivery Room Air 07/30/22 04:13 07/30/22 09:15 07/30/22 08:00 Temperature 97.9 F Pulse Rate 100 94 Respiratory Rate 16 Blood Pressure 115/60 Pulse Oximetry 97 Oxygen Delivery Room Air Intake/Output Intake/Output: Intake & Output 07/27/22 07/28/22 07/29/22 07/30/22 23:59 23:59 23:59 23:59 Intake Total 390 2220 520 Output Total 700 400 Balance 390 1520 120 Meds/Results Medications: Active Med
[2022-07-30 14:00] VITALS: BP 108/59; PULSE 78; RESP 18; TEMP 37; O2SAT 92
[2022-07-30] MEDS: POTASSIUM CHLORIDE 20 MEQ TABLET.ER PO ×2 (15:36→18:22)
[2022-07-30] MEDS: CYCLOBENZAPRINE HCL 5 MG TABLET PO (18:23)
[2022-07-30] MEDS: ATORVASTATIN 20 MG TABLET PO (19:48)
[2022-07-30] MEDS: ESCITALOPRAM OXALATE 10 MG TABLET PO (19:48)
[2022-07-30] MEDS: RIVAROXABAN 20 MG TABLET PO (19:48)
[2022-07-30 21:48] VITALS: BP 113/57; PULSE 83; RESP 16; TEMP 36.1; O2SAT 93
[2022-07-31 06:00] VITALS: BP 116/52; PULSE 79; RESP 18; TEMP 36.4; O2SAT 95
[2022-07-31] MEDS: LIDOCAINE 5% PATCH 2 PATCH TRANSDERM (09:08)
[2022-07-31] MEDS: TAMSULOSIN HCL 0.4 MG CAPSULE PO (09:09)
[2022-07-31] MEDS: PANTOPRAZOLE 40 MG TABLET PO (09:09)
[2022-07-31] MEDS: MULTIVITAMINS /C LUTEIN (CENTRUM SILVER) TABLET *BKC 1 TAB PO (09:09)
[2022-07-31 09:10] VITALS: PULSE 79
[2022-07-31] MEDS: POTASSIUM CHLORIDE 20 MEQ TABLET.ER PO ×2 (09:10→17:33)
[2022-07-31] MEDS: dilTIAZem HCL CD 180 MG CAP.ER.24H PO (09:10)
[2022-07-31] MEDS: FLUTICASONE PROPIONATE 0.05% NA SPR 16 GM BTL (*BKC) 1 SPRAY NASAL (09:10)
[2022-07-31] MEDS: DIGOXIN TAB 125 MCG TABLET PO (09:10)
[2022-07-31] MEDS: SACCHAROMYCES BOULARDII 250 MG CAPSULE PO ×3 (09:13→17:32)
[2022-07-31] MEDS: traMADol HCL (*CRX) 50 MG TABLET PO ×2 (10:25→17:32)
--- NOTE | 2022-07-31 10:30 | PM.IMPN ---
Progress Note: A&P Assessment and Plan (1) Septic arthritis of knee: Code(s): M00.9 - Pyogenic arthritis, unspecified Status: Acute Assessment and Plan: Orthopedic physician has been consulted. -the left knee has been drained per Interventional Radiology 1. Successful Ultrasound-guided aspiration at the suprapatellar pouch of the right knee yielding a scant amount of dark maroon-colored fluid. This along with the ultrasound and CT appearance favors a likely combination of organized clot and synovitis. Follow up with findings from the cultures of the obtained fluid. Patient was started on Rocephin and vancomycin. Blood cultures are pending Body fluid cultures are pending. Continue with analgesic 07/31/2022 interval history: 76-year-old female presents with complaint of pain in her left knee on 07/28 upon arrival IR aspirated the knee and dark thick fluid was collected, no growth so far, patient complains of persistent pain her knee patient was seen by Orthopedics, patient does not need any surgical intervention and recommended conservative management, with brace and physical therapy, the knee aspirate was sent for culture will follow-up, and a blood culture no growth so far, meanwhile patient started on ceftriaxone and vancomycin, patient is allergic to codeine,However is able to tolerate Dilaudid will give short course tramadol and monitor, also flaxier 5 mg every 8 hours as needed and apply 2 Lidoderm patch on the knee and will continue to monitor (2) Atrial fibrillation: Code(s): I48.91 - Unspecified atrial fibrillation Status: Acute Assessment and Plan: -continue with digoxin -continue with Xarelto -rate is controlled. -continue with Cardizem (3) Chronic GERD: Code(s): K21.9 - Gastro-esophageal reflux disease without esophagitis Status: Acute Assessment and Plan: continue with omeprazole (4) Depression with anxiety: Code(s): F41.8 - Other specified anxiety disorders Status: Acute Assessment and Plan: -continue with Lexapro (5) Hyperlipidemia: Code(s): E78.5 - Hyperlipidemia, unspecified Status: Acute Assessment and Plan: Continue with Lipitor Subjective Date/time seen: 07/31/22 10:30 07/31/2022 interval history: 76-year-old female presents with complaint of pain in her left knee on 07/28 upon arrival IR aspirated the knee and dark thick fluid was collected, no growth so far, patient complains of persistent pain her knee patient was seen by Orthopedics, patient does not need any surgical intervention and recommended conservative management, with brace and physical therapy, the knee aspirate was sent for culture will follow-up, and a blood culture no growth so far, meanwhile patient started on ceftriaxone and vancomycin, patient is allergic to codeine,However is able to tolerate Dilaudid will give short course tramadol and monitor, also flaxier 5 mg every 8 hours as needed and apply 2 Lidoderm patch on the knee and will continue to monitor Review of Systems Review of Systems: All systems reviewed & are unremarkable except as noted in HPI and below Exam Narrative: elderly frail Patient is comfortable, NAD HEENT: eyes are clear and none icteric LUNGS: normal respiratory effort ABD: not distended Lower extremities: no edema Left knee in Nigel wrap. SKIN: nonjaundiced Neuro: grossly intact. Objective Data Vital Signs Vital Signs: Vital Signs - 24 hr 07/30/22 14:00 07/30/22 14:25 07/30/22 21:48 Temperature 98.6 F 97.0 F L Pulse Rate 78 83 Respiratory Rate 18 16 Blood Pressure 108/59 L 113/57 L Pulse Oximetry 92 93 Oxygen Delivery Room Air 07/30/22 20:00 07/31/22 06:00 07/31/22 09:10 Temperature 97.6 F Pulse Rate 79 79 Respiratory Rate 18 Blood Pressure 116/52 L Pulse Oximetry 95 Oxygen Delivery Room Air Intake/Output Intake/Output: Intake & Output 07/28/22
[2022-07-31] MEDS: HYDROmorphone HCL INJ (*CRX) 1 MG/ML SYR 0.5 MG IV PUSH (11:17)
[2022-07-31 13:11] VITALS: BMI 10.0
[2022-07-31 14:00] VITALS: BP 96/60; PULSE 82; RESP 12; TEMP 36.9; O2SAT 92
[2022-07-31 17:24] LABS: Vancomycin Trough 14.7 ug/mL (10.0-20.0)
[2022-07-31] MEDS: ONDANSETRON INJ 4 MG/2 ML VIAL IV PUSH (19:12)
[2022-07-31] MEDS: ESCITALOPRAM OXALATE 10 MG TABLET PO (20:05)
[2022-07-31] MEDS: ATORVASTATIN 20 MG TABLET PO (20:05)
[2022-07-31] MEDS: RIVAROXABAN 20 MG TABLET PO (20:05)
[2022-07-31 21:38] VITALS: BP 101/56; PULSE 75; RESP 20; TEMP 36.8; O2SAT 98
[2022-08-01 06:16] VITALS: BP 107/48; PULSE 80; RESP 16; TEMP 36.1; O2SAT 93
[2022-08-01 06:52] LABS: Estimated CRCL calculation 97 ml/min; Estimated Glomerular Filt Rate > 60
--- NOTE | 2022-08-01 08:29 | PCPTNOTE ---
Attempted to see patient for PT, however patient reported she needed to use the bed rdz and refused to attempt transfer to [facility], and reported she did not want to perform any transfers at this time. Assisted patient with bed rdz and gave patient her call light, patient reported she will call when done. CREDIT REFERENCE CLERK aware. Patient unable to be seen for this reason.
[2022-08-01] MEDS: SACCHAROMYCES BOULARDII 250 MG CAPSULE PO ×3 (09:23→17:38)
[2022-08-01 09:24] VITALS: PULSE 80
[2022-08-01] MEDS: DIGOXIN TAB 125 MCG TABLET PO (09:24)
[2022-08-01] MEDS: POTASSIUM CHLORIDE 20 MEQ TABLET.ER PO ×2 (09:24→17:39)
[2022-08-01] MEDS: PANTOPRAZOLE 40 MG TABLET PO (09:24)
[2022-08-01] MEDS: FLUTICASONE PROPIONATE 0.05% NA SPR 16 GM BTL (*BKC) 1 SPRAY NASAL (09:24)
[2022-08-01] MEDS: TAMSULOSIN HCL 0.4 MG CAPSULE PO (09:24)
[2022-08-01] MEDS: MULTIVITAMINS /C LUTEIN (CENTRUM SILVER) TABLET *BKC 1 TAB PO (09:24)
[2022-08-01] MEDS: LIDOCAINE 5% PATCH 2 PATCH TRANSDERM (09:24)
[2022-08-01] MEDS: traMADol HCL (*CRX) 50 MG TABLET PO ×2 (09:28→17:40)
[2022-08-01 11:00] VITALS: BMI 11.0
[2022-08-01] MEDS: SODIUM CHLORIDE 0.9% IV 500 ML (12:14)
--- NOTE | 2022-08-01 12:27 | PM.PNORT ---
Progress Note: A&P Assessment and Plan (1) Knee effusion, left: Code(s): M25.462 - Effusion, left knee Status: Acute Assessment and Plan: culture continues to be negative. No further redness or swelling. Continue PT/OT. Pain control. Weightbearing as tolerated. Placement when medically stable. (2) Lung nodule seen on imaging study: Code(s): R91.1 - Solitary pulmonary nodule Status: Acute Assessment and Plan: CT scan of the chest shows left and right upper lung nodule. Radiology recommends PET scan. Plan per Medicine. Subjective Subjective Date/Time Seen: 08/01/22 12:27 Principal diagnosis: Left knee effusion Interval history: resting comfortably. No new complaints. Exam Const: General: healthy appearing; No in distress or confusion Orientation/consciousness: oriented to person, oriented to place and oriented to time Neck: Neck: supple and nontender Resp: Effort & Inspection: normal respiratory effort and no audible wheezes Extrem: Right upper extremity: normal to inspection Left upper extremity: normal to inspection Right lower extremity: hip/thigh Details: normal ROM; no tenderness, knee Details: normal to inspection, normal ROM, knee ligament exam normal Details: anterior drawer test normal, posterior drawer test normal, valgus stress test normal, varus stress test normal and Promise?s test normal and Sree's Test Details: negative medially and laterally; no tenderness and no swelling and foot Details: normal capillary refill, toes with normal ROM, vascular exam Details: dorsalis pedis pulse present and motor-sensory exam Details: light-touch normal; no tenderness; no edema Left lower extremity: normal to inspection, normal capillary refill, hip/thigh Details: normal ROM; no tenderness, knee Details: tenderness Location: of the patella, of the medial joint line and of the infrapatellar area, swelling Location: of the infrapatellar area (mild), abnormal ROM (active extension -10, flexion 110), knee ligament exam normal Details: anterior drawer test normal, posterior drawer test normal, valgus stress test normal, varus stress test normal and Promise's test normal, Sree's Test Details: negative laterally and positive medially and crepitus Location: at the patella (mild) and foot Details: toes with normal ROM, vascular exam Details: dorsalis pedis pulse present and normal capillary refill and motor-sensory exam light-touch normal; no tenderness Psych: Affect: normal affect Objective Data Vital Signs Vital Signs: Vital Signs - 24 hr 07/31/22 14:00 07/31/22 20:00 07/31/22 21:38 Temperature 98.5 F 98.3 F Pulse Rate 82 75 Respiratory Rate 12 20 Blood Pressure 96/60 L 101/56 L Pulse Oximetry 92 98 Oxygen Delivery Room Air 08/01/22 06:16 08/01/22 09:24 08/01/22 08:00 Temperature 97.0 F L Pulse Rate 80 80 Respiratory Rate 16 Blood Pressure 107/48 L Pulse Oximetry 93 Oxygen Delivery Room Air Intake/Output Intake/Output: Intake & Output 07/29/22 07/30/22 07/31/22 08/01/22 23:59 23:59 23:59 23:59 Intake Total 2220 1450 1530 770 Output Total 700 1150 700 600 Balance 1520 300 830 170 Meds/Results Medications: Active Medications Generic Name Dose Route Start Last Admin Trade Name Freq PRN Reason Stop Dose Admin Albuterol 2 puff 07/29/22 00:40 Albuterol Sulfate (*Sp) Aerosol 1 Puff INHALATION Q4H PRN Dyspnea Atorvastatin Calcium 20 mg 07/29/22 21:00 07/31/22 20:05 Atorvastatin 20 Mg Tablet PO 20 mg HS YESENIA Administration Digoxin 125 mcg 07/29/22 09:00 08/01/22 09:24 Digoxin Tab 125 Mcg Tablet PO 125 mcg DAILY YESENIA Administration Diltiazem HCl 180 mg 07/29/22 09:00 08/01/22 09:20 Diltiazem Hcl Cd 180 Mg Cap.Er.24h PO Not Given DAILY YESENIA Escitalopram Oxalate 10 mg 07/29/22 21:00 07/31/22 20:05 Escitalopram Oxalate 10 Mg Tablet PO 10 mg HS YESENIA Administration Fluticason
--- NOTE | 2022-08-01 13:08 | PM.IMPN ---
Progress Note: A&P Assessment and Plan (1) Septic arthritis of knee: Code(s): M00.9 - Pyogenic arthritis, unspecified Status: Acute Assessment and Plan: Orthopedic physician has been consulted. -the left knee has been drained per Interventional Radiology 1. Successful Ultrasound-guided aspiration at the suprapatellar pouch of the right knee yielding a scant amount of dark maroon-colored fluid. This along with the ultrasound and CT appearance favors a likely combination of organized clot and synovitis. Follow up with findings from the cultures of the obtained fluid. Patient was started on Rocephin and vancomycin. Blood cultures are pending Body fluid cultures are pending. Continue with analgesic 08/01/2022 interval history: 76-year-old female presents with complaint of pain in her left knee on 07/28 upon arrival IR aspirated the knee and dark thick fluid was collected, no growth so far, patient complains of persistent pain her knee patient was seen by Orthopedics, patient does not need any surgical intervention and recommended conservative management, with brace and physical therapy, the knee aspirate was sent for culture still no growth will follow-up, and a blood culture no growth so far, meanwhile patient started on ceftriaxone and vancomycin, patient continue to complain pain her left knee unable to participate in physical therapy, will have orthopedic surgeon recheck the patient and further recommendation to follow, patient is allergic to codeine, However is able to tolerate Dilaudid will give short course tramadol and monitor, also flaxier 5 mg every 8 hours as needed and apply 2 Lidoderm patch on the knee and will continue to monitor (2) Atrial fibrillation: Code(s): I48.91 - Unspecified atrial fibrillation Status: Acute Assessment and Plan: -continue with digoxin -continue with Xarelto -rate is controlled. -continue with Cardizem (3) Chronic GERD: Code(s): K21.9 - Gastro-esophageal reflux disease without esophagitis Status: Acute Assessment and Plan: continue with omeprazole (4) Depression with anxiety: Code(s): F41.8 - Other specified anxiety disorders Status: Acute Assessment and Plan: -continue with Lexapro (5) Hyperlipidemia: Code(s): E78.5 - Hyperlipidemia, unspecified Status: Acute Assessment and Plan: Continue with Lipitor Subjective Date/time seen: 08/01/22 13:08 08/01/2022 interval history: 76-year-old female presents with complaint of pain in her left knee on 07/28 upon arrival IR aspirated the knee and dark thick fluid was collected, no growth so far, patient complains of persistent pain her knee patient was seen by Orthopedics, patient does not need any surgical intervention and recommended conservative management, with brace and physical therapy, the knee aspirate was sent for culture still no growth will follow-up, and a blood culture no growth so far, meanwhile patient started on ceftriaxone and vancomycin, patient continue to complain pain her left knee unable to participate in physical therapy, will have orthopedic surgeon recheck the patient and further recommendation to follow, patient is allergic to codeine, However is able to tolerate Dilaudid will give short course tramadol and monitor, also flaxier 5 mg every 8 hours as needed and apply 2 Lidoderm patch on the knee and will continue to monitor Review of Systems Review of Systems: All systems reviewed & are unremarkable except as noted in HPI and below Exam Narrative: elderly frail Patient is comfortable, NAD HEENT: eyes are clear and none icteric LUNGS: normal respiratory effort ABD: not distended Lower extremities: no edema Left knee in Nigel wrap. SKIN: nonjaundiced Neuro: grossly intact. Objective Data Vital Signs Vital Signs: Vital Signs - 24 hr 07/31/22 14:00 07/31/22 20:00 07/31/22 21:38 Temperature 98.5 F 98.3 F Pulse R
--- NOTE | 2022-08-01 13:50 | PCPTNOTE ---
Per RN: advised not to see patient for PT this afternoon due to patient having an unresponsive episode this A.M.
[2022-08-01 14:00] VITALS: BP 101/55; PULSE 66; RESP 16; TEMP 36.9; O2SAT 90
[2022-08-01] MEDS: DOXYCYCLINE HYCLATE 100 MG TABLET PO (20:55)
[2022-08-01] MEDS: ESCITALOPRAM OXALATE 10 MG TABLET PO (20:55)
[2022-08-01] MEDS: ATORVASTATIN 20 MG TABLET PO (20:55)
[2022-08-01] MEDS: RIVAROXABAN 20 MG TABLET PO (20:55)
[2022-08-01 22:47] VITALS: BP 108/54; PULSE 78; RESP 18; TEMP 36.2; O2SAT 95
[2022-08-02 06:00] VITALS: BP 136/63; PULSE 80; RESP 18; TEMP 36.1; O2SAT 97
[2022-08-02] MEDS: LIDOCAINE 5% PATCH 2 PATCH TRANSDERM (08:21)
[2022-08-02] MEDS: FLUTICASONE PROPIONATE 0.05% NA SPR 16 GM BTL (*BKC) 1 SPRAY NASAL ×2 (08:21→17:23)
[2022-08-02 08:25] VITALS: PULSE 92
[2022-08-02] MEDS: SACCHAROMYCES BOULARDII 250 MG CAPSULE PO ×3 (08:25→17:24)
[2022-08-02] MEDS: DIGOXIN TAB 125 MCG TABLET PO (08:25)
[2022-08-02] MEDS: POTASSIUM CHLORIDE 20 MEQ TABLET.ER PO ×2 (08:25→17:23)
[2022-08-02] MEDS: PANTOPRAZOLE 40 MG TABLET PO (08:25)
[2022-08-02] MEDS: TAMSULOSIN HCL 0.4 MG CAPSULE PO (08:25)
[2022-08-02] MEDS: DOXYCYCLINE HYCLATE 100 MG TABLET PO ×2 (08:25→20:55)
[2022-08-02] MEDS: dilTIAZem HCL CD 180 MG CAP.ER.24H PO (08:26)
[2022-08-02] MEDS: traMADol HCL (*CRX) 50 MG TABLET PO ×2 (10:59→17:25)
[2022-08-02] MEDS: MULTIVITAMINS /C LUTEIN (CENTRUM SILVER) TABLET *BKC 1 TAB PO (11:00)
--- NOTE | 2022-08-02 12:34 | PM.PNORT ---
Progress Note: A&P Assessment and Plan (1) Knee effusion, left: Code(s): M25.462 - Effusion, left knee Status: Acute Assessment and Plan: culture continues to be negative. No further redness or swelling. Patient comfortable at rest. No surgical indication at this time as patient does not meet qualifications for joint replacement. Continue PT/OT. Pain control. Weightbearing as tolerated. Will add knee brace to provide some stability. Placement when medically stable. (2) Lung nodule seen on imaging study: Code(s): R91.1 - Solitary pulmonary nodule Status: Acute Subjective Subjective Date/Time Seen: 08/02/22 12:34 Principal diagnosis: Left knee effusion Interval history: patient states pain a little bit better. Still unable to stand. Complains of pain with movement left knee. Comfortable at rest. Exam Const: General: healthy appearing; No in distress or confusion Orientation/consciousness: oriented to person, oriented to place and oriented to time Neck: Neck: supple and nontender Resp: Effort & Inspection: normal respiratory effort and no audible wheezes Extrem: Right upper extremity: normal to inspection Left upper extremity: normal to inspection Right lower extremity: hip/thigh Details: normal ROM; no tenderness, knee Details: normal to inspection, normal ROM, knee ligament exam normal Details: anterior drawer test normal, posterior drawer test normal, valgus stress test normal, varus stress test normal and Promise?s test normal and Sree's Test Details: negative medially and laterally; no tenderness and no swelling and foot Details: normal capillary refill, toes with normal ROM, vascular exam Details: dorsalis pedis pulse present and motor-sensory exam Details: light-touch normal; no tenderness; no edema Left lower extremity: normal to inspection, normal capillary refill, hip/thigh Details: normal ROM; no tenderness, knee Details: tenderness Location: of the patella, of the medial joint line and of the infrapatellar area, swelling Location: of the infrapatellar area (mild), abnormal ROM (active extension -10, flexion 110), knee ligament exam normal Details: anterior drawer test normal, posterior drawer test normal, valgus stress test normal, varus stress test normal and Promise's test normal, Sree's Test Details: negative laterally and positive medially and crepitus Location: at the patella (mild) and foot Details: toes with normal ROM, vascular exam Details: dorsalis pedis pulse present and normal capillary refill and motor-sensory exam light-touch normal; no tenderness Psych: Affect: normal affect Objective Data Vital Signs Vital Signs: Vital Signs - 24 hr 08/01/22 14:00 08/01/22 22:47 08/02/22 06:00 Temperature 98.4 F 97.1 F L 97.0 F L Pulse Rate 66 78 80 Respiratory Rate 16 18 18 Blood Pressure 101/55 L 108/54 L 136/63 Pulse Oximetry 90 95 97 Oxygen Delivery 08/02/22 08:25 08/02/22 08:30 Temperature Pulse Rate 92 Respiratory Rate Blood Pressure Pulse Oximetry Oxygen Delivery Room Air Intake/Output Intake/Output: Intake & Output 07/30/22 07/31/22 08/01/22 08/02/22 23:59 23:59 23:59 23:59 Intake Total 1450 1530 2210 400 Output Total 3810 665 6872 400 Balance 300 830 860 0 Meds/Results Medications: Active Medications Generic Name Dose Route Start Last Admin Trade Name Freq PRN Reason Stop Dose Admin Albuterol 2 puff 07/29/22 00:40 Albuterol Sulfate (*Sp) Aerosol 1 Puff INHALATION Q4H PRN Dyspnea Atorvastatin Calcium 20 mg 07/29/22 21:00 08/01/22 20:55 Atorvastatin 20 Mg Tablet PO 20 mg HS YESENIA Administration Digoxin 125 mcg 07/29/22 09:00 08/02/22 08:25 Digoxin Tab 125 Mcg Tablet PO 125 mcg DAILY YESENIA Administration Diltiazem HCl 180 mg 07/29/22 09:00 08/02/22 08:26 Diltiazem Hcl Cd 180 Mg Cap.Er.24h PO 180 mg DAILY YESENIA Administration Doxycycline Hyclate 100 mg
--- NOTE | 2022-08-02 13:40 | P.DS_ITS ---
DS: Summary Time Spent with Patient Time attestation: Total time spent providing and/or coordinating discharge services: DS: Data Data Completed and Pending Labs on day of discharge: Preliminary micro results at discharge 07/28/22 12:29 Anaerobic Culture - Preliminary Aspirate 07/28/22 14:16 Blood Culture - Preliminary Blood 07/28/22 14:16 Blood Culture - Preliminary Blood Discharge Plan Discharge Attending physician on discharge: Destiny Osorio Consulting providers: Cuate Munoz Discharging Clinician: Destiny Osorio Patient Disposition: NH [facility] Living Activity: may shower, no driving and follow weight bearing status Diet: heart healthy Discharge Instructions: Patient to wagner knee brace, participate in PT, patient to follow discharge care instruction from orthopedic surgeon and follow-up as scheduled, patient to follow-up with her primary care provider as soon as possible Patient Instructions: Antibiotic Form, Rivaroxaban (By mouth), Pain Management in Older Adults (DC), Help Prevent Suicide (DC) Stand Alone Forms: General Discharge Information Follow-up/Referrals: Aruna,Porsche Canas MD [Primary Care Provider] - Cuate Munoz MD [Physician] - (Call for an appt as needed. ) Discharge Medications: New tramadol 50 mg Tablet 50 mg PO Q6H PRN (Reason: Pain Rated 4-6) Qty: 12 0RF lidocaine [Lidoderm] 5 % Adhesive Patch,Medicated 2 patch transdermal DAILY Qty: 10 0RF Saccharomyces boulardii [Florastor] 250 mg Capsule 250 mg PO TID Qty: 60 0RF doxycycline hyclate 100 mg Tablet 100 mg PO Q12HR Qty: 10 0RF Continued atorvastatin 20 mg tablet 20 mg PO HS balsalazide 750 mg capsule 750 mg PO TID Label Comments: TAKES 3 TABS TID digoxin 125 mcg (0.125 mg) tablet 125 mcg PO DAILY escitalopram oxalate 10 mg tablet 10 mg PO HS Xarelto 20 mg tablet 20 mg PO HS potassium chloride 20 mEq tablet,ER particles/crystals 20 meq PO BID tamsulosin 0.4 mg capsule 0.4 mg PO DAILY omeprazole 20 mg capsule,delayed release(DR/EC) 20 mg PO DAILY albuterol sulfate 90 mcg/actuation HFA aerosol inhaler 2 puff INHALATION Q4H PRN (Reason: Dyspnea) ondansetron [Zofran ODT] 4 mg Tablet,Disintegrating 4 mg PO Q6H PRN (Reason: Nausea) fluticasone propionate 50 mcg/actuation spray,suspension 1 spray INTRANASAL BID diltiazem HCl [DILT-XR] 180 mg capsule,ext.rel 24h degradable 180 mg PO DAILY Anusol Suppository 1 supp RECTAL TID PRN (Reason: Hemorrhoids) Adults Multivitamin 18 mg iron-400 mcg-25 mcg Tablet 1 tablet PO DAILY Date of admission: 08/01/22 13:47 Primary Care Provider: Aruna,Porsche Canas Admitting Provider: Summer Wren Attending physician on admission: Summer Wren Condition: Guarded Prognosis
[2022-08-02 14:08] VITALS: BP 104/56; PULSE 93; RESP 14; TEMP 36.4; O2SAT 94
[2022-08-02 14:33] LABS: EDCOVIDSCREEN Negative (Negative)
[2022-08-02 19:55] VITALS: BP 105/54; PULSE 84; RESP 16; TEMP 36.4; O2SAT 93
[2022-08-02] MEDS: RIVAROXABAN 20 MG TABLET PO (20:55)
[2022-08-02] MEDS: ATORVASTATIN 20 MG TABLET PO (20:55)
[2022-08-02] MEDS: ESCITALOPRAM OXALATE 10 MG TABLET PO (20:55)
[2022-08-03 05:51] VITALS: BP 101/64; PULSE 89; RESP 16; TEMP 36.6; O2SAT 95
[2022-08-03 09:04] VITALS: BP 116/66; PULSE 85; RESP 14; O2SAT 95
[2022-08-03] MEDS: PANTOPRAZOLE 40 MG TABLET PO (09:05)
[2022-08-03] MEDS: POTASSIUM CHLORIDE 20 MEQ TABLET.ER PO ×2 (09:05→16:47)
[2022-08-03] MEDS: LIDOCAINE 5% PATCH 2 PATCH TRANSDERM (09:05)
[2022-08-03] MEDS: FLUTICASONE PROPIONATE 0.05% NA SPR 16 GM BTL (*BKC) 1 SPRAY NASAL ×2 (09:05→16:48)
[2022-08-03 09:06] VITALS: PULSE 85
[2022-08-03] MEDS: DIGOXIN TAB 125 MCG TABLET PO (09:06)
[2022-08-03] MEDS: SACCHAROMYCES BOULARDII 250 MG CAPSULE PO ×3 (09:06→16:48)
[2022-08-03] MEDS: DOXYCYCLINE HYCLATE 100 MG TABLET PO (09:06)
[2022-08-03] MEDS: dilTIAZem HCL CD 180 MG CAP.ER.24H PO (09:06)
[2022-08-03] MEDS: TAMSULOSIN HCL 0.4 MG CAPSULE PO (09:06)
[2022-08-03] MEDS: traMADol HCL (*CRX) 50 MG TABLET PO (10:04)
[2022-08-03] MEDS: MULTIVITAMINS /C LUTEIN (CENTRUM SILVER) TABLET *BKC 1 TAB PO (12:49)
--- NOTE | 2022-08-03 13:14 | PM.IMPN ---
Progress Note: A&P Assessment and Plan (1) Septic arthritis of knee: Code(s): M00.9 - Pyogenic arthritis, unspecified Status: Acute Assessment and Plan: 08/02/2022 interval history: ?76-year-old female presents with complaint of pain in her left knee on 07/28 upon arrival? IR aspirated the knee and dark thick? fluid was collected, no growth so far,? patient complains of persistent pain her knee patient was seen by Orthopedics, patient does? not need any surgical intervention and recommended conservative management, ? with brace and physical therapy, the knee aspirate was sent for culture? still no growth will follow-up, and a blood culture no growth so far,? meanwhile patient started on ceftriaxone and vancomycin, patient continue to complain pain her left knee unable to participate in physical therapy, will have orthopedic surgeon recheck the patient and further recommendation to follow,? patient is allergic to codeine, However is able to tolerate Dilaudid will give short course tramadol and monitor, also flaxier 5 mg every 8 hours as needed and apply 2 Lidoderm patch on the knee and will continue to monitor, patient remains clinically stable, will continue to monitor and may discharge patient tomorrow. (2) Atrial fibrillation: Code(s): I48.91 - Unspecified atrial fibrillation Status: Acute (3) Chronic GERD: Code(s): K21.9 - Gastro-esophageal reflux disease without esophagitis Status: Acute (4) Depression with anxiety: Code(s): F41.8 - Other specified anxiety disorders Status: Acute (5) Hyperlipidemia: Code(s): E78.5 - Hyperlipidemia, unspecified Status: Acute Subjective Date/time seen: 08/02/22 13:14 08/02/2022 interval history: ?76-year-old female presents with complaint of pain in her left knee on 07/28 upon arrival? IR aspirated the knee and dark thick? fluid was collected, no growth so far,? patient complains of persistent pain her knee patient was seen by Orthopedics, patient does? not need any surgical intervention and recommended conservative management, ? with brace and physical therapy, the knee aspirate was sent for culture? still no growth will follow-up, and a blood culture no growth so far,? meanwhile patient started on ceftriaxone and vancomycin, patient continue to complain pain her left knee unable to participate in physical therapy, will have orthopedic surgeon recheck the patient and further recommendation to follow,? patient is allergic to codeine, However is able to tolerate Dilaudid will give short course tramadol and monitor, also flaxier 5 mg every 8 hours as needed and apply 2 Lidoderm patch on the knee and will continue to monitor, patient remains clinically stable, will continue to monitor and may discharge patient tomorrow. Exam Narrative: elderly frail Ariadna ent is comfortable , NAD HEENT: eyes are clear and none icteric LUNGS: no rmal respiratory e ffort ABD: not dis tended Lower extre mities: no edema L eft knee in Nigel wr ap. SKIN: nonjaund iced Neuro: grossl y intact. Objective Data Vital Signs Vital Signs: Vital Signs - 24 hr 08/02/22 14:08 08/02/22 19:55 08/03/22 05:51 Temperature 97.5 F L 97.6 F 97.8 F Pulse Rate 93 84 89 Respiratory Rate 14 16 16 Blood Pressure 104/56 L 105/54 L 101/64 Pulse Oximetry 94 93 95 Oxygen Delivery 08/03/22 09:04 08/03/22 09:06 08/03/22 09:00 Temperature Pulse Rate 85 85 Respiratory Rate 14 Blood Pressure 116/66 Pulse Oximetry 95 Oxygen Delivery Room Air Intake/Output Intake/Output: Intake & Output 07/31/22 08/01/22 08/02/22 08/03/22 23:59 23:59 23:59 23:59 Intake Total 1530 2210 850 250 Output Total 700 1350 1200 200 Balance 830 860 -350 50 Meds/Results Medications: Active Medications Generic Name Dose Route Start Last Admin Trade Name Freq PRN Reason Stop Dose Admin Albuterol 2 puff 07/29/22 00:40 Albuterol Sulfate (*Sp) A
--- NOTE | 2022-08-03 13:14 | PM.IMPN ---
Subjective Date/time seen: 08/03/22 13:14 Objective Data Vital Signs Vital Signs: Vital Signs - 24 hr 08/02/22 14:08 08/02/22 19:55 08/03/22 05:51 Temperature 97.5 F L 97.6 F 97.8 F Pulse Rate 93 84 89 Respiratory Rate 14 16 16 Blood Pressure 104/56 L 105/54 L 101/64 Pulse Oximetry 94 93 95 Oxygen Delivery 08/03/22 09:04 08/03/22 09:06 08/03/22 09:00 Temperature Pulse Rate 85 85 Respiratory Rate 14 Blood Pressure 116/66 Pulse Oximetry 95 Oxygen Delivery Room Air Intake/Output Intake/Output: Intake & Output 07/31/22 08/01/22 08/02/22 08/03/22 23:59 23:59 23:59 23:59 Intake Total 1530 2210 850 250 Output Total 700 1350 1200 200 Balance 830 860 -350 50 Meds/Results Medications: Active Medications Generic Name Dose Route Start Last Admin Trade Name Freq PRN Reason Stop Dose Admin Albuterol 2 puff 07/29/22 00:40 Albuterol Sulfate (*Sp) Aerosol 1 Puff INHALATION Q4H PRN Dyspnea Atorvastatin Calcium 20 mg 07/29/22 21:00 08/02/22 20:55 Atorvastatin 20 Mg Tablet PO 20 mg HS YESENIA Administration Digoxin 125 mcg 07/29/22 09:00 08/03/22 09:06 Digoxin Tab 125 Mcg Tablet PO 125 mcg DAILY YESENIA Administration Diltiazem HCl 180 mg 07/29/22 09:00 08/03/22 09:06 Diltiazem Hcl Cd 180 Mg Cap.Er.24h PO 180 mg DAILY YESENIA Administration Doxycycline Hyclate 100 mg 08/01/22 21:00 08/03/22 09:06 Doxycycline Hyclate 100 Mg Tablet PO 08/10/22 23:59 100 mg Q12HR YESENIA Administration Escitalopram Oxalate 10 mg 07/29/22 21:00 08/02/22 20:55 Escitalopram Oxalate 10 Mg Tablet PO 10 mg HS YESENIA Administration Fluticasone Propionate 1 spray 07/29/22 09:00 08/03/22 09:05 Fluticasone Propionate 0.05% Na Spr 16 Gm Btl (*Bkc) NASAL 1 spray BID YESENIA Administration Lidocaine 2 patch 07/30/22 09:00 08/03/22 09:05 Lidocaine 5% Patch TRANSDERM 2 patch DAILY YESENIA Administration Multivitamins/Minerals 1 tab 08/02/22 12:00 08/03/22 12:49 Multivitamins /C Lutein (Centrum Silver) Tablet *Bkc PO 1 tab DAILY@1200 YESENIA Administration Ondansetron HCl 4 mg 07/28/22 13:51 07/31/22 19:12 Ondansetron Inj 4 Mg/2 Ml Vial IV PUSH 4 mg Q4H PRN Administration Nausea Pantoprazole Sodium 40 mg 07/29/22 09:00 08/03/22 09:05 Pantoprazole 40 Mg Tablet PO 40 mg QAM YESENIA Administration Potassium Chloride 20 meq 07/29/22 09:00 08/03/22 09:05 Potassium Chloride 20 Meq Tablet.Er PO 20 meq BID YESENIA Administration Rivaroxaban 20 mg 07/29/22 21:00 08/02/22 20:55 Rivaroxaban 20 Mg Tablet PO 20 mg HS YESENIA Administration Saccharomyces Boulardii 250 mg 07/31/22 09:00 08/03/22 12:49 Saccharomyces Boulardii 250 Mg Capsule PO 250 mg TID YESENIA Administration Tamsulosin HCl 0.4 mg 07/29/22 09:00 08/03/22 09:06 Tamsulosin Hcl 0.4 Mg Capsule PO 0.4 mg DAILY YESENIA Administration Tramadol HCl 50 mg 07/31/22 09:47 08/03/22 10:04 Tramadol Hcl (*Crx) 50 Mg Tablet PO 50 mg Q6H PRN Administration Pain Rated 4-6 Radiology Results: ITS Impressions Venous Doppler Study 07/28/22 07:44 IMPRESSION: 1. No deep venous thrombosis in the left lower limb. Chest X-Ray 07/28/22 07:45 IMPRESSION: 1. Pulmonary vascular congestion and increased interstitial pattern in the right lung relative to the left which could be due to asymmetric pulmonary edema, pneumonia, left-sided pulmonary embolism or artifact of atelectasis and bronchovascular crowding resulting from the elevation the right hemidiaphragm. Hip/Pelvis X-Ray 07/28/22 08:05 Impression: 1: No acute fracture. Knee CT 07/28/22 08:36 IMPRESSION: 1. Large complex left knee joint effusion with heterogeneous increased density potentially representing blood, septic arthritis or bulky reactive synovitis. Correlate with arthrocentesis. 2. 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
[2022-08-03 15:17] VITALS: BP 102/52; PULSE 80; RESP 20; TEMP 36.7; O2SAT 96
[2022-08-03 15:32] VITALS: O2SAT 95
[2022-08-03 16:10] LABS: EDCOVIDSCREEN Negative (Negative)
--- NOTE | 2022-08-11 12:57 | PM.DS ---
DS: Admitting Diagnosis Discharge Date 08/03/22 Admitting Diagnosis Left knee pain DS: Discharge Diagnosis Discharge Diagnosis (1) Septic arthritis of knee: Code(s): M00.9 - Pyogenic arthritis, unspecified Status: Acute (2) Atrial fibrillation: Code(s): I48.91 - Unspecified atrial fibrillation Status: Acute (3) Chronic GERD: Code(s): K21.9 - Gastro-esophageal reflux disease without esophagitis Status: Acute (4) Depression with anxiety: Code(s): F41.8 - Other specified anxiety disorders Status: Acute (5) Hyperlipidemia: Code(s): E78.5 - Hyperlipidemia, unspecified Status: Acute DS: Summary Hospital Course Reason for hospitalization: Left knee pain Narrative: This is a 76-year-old female patient who came to the emergency room with complaints of left knee swelling and pain.? The patient stated this happened all of a sudden 2 days ago.? She has not had any injury to that left knee.? The patient has chronic knee pain but it became worse over the last 2 days.? ER attempted to drain and the knee and was unable to obtain any fluid.? Interventional Radiology did a joint aspiration with imaging.1. Successful Ultrasound-guided aspiration at the suprapatellar pouch of the right knee yielding a scant amount of dark maroon-colored fluid. This along with the ultrasound and CT appearance favors a likely combination of organized clot and synovitis. Follow up with findings from the cultures of the obtained fluid.? Chest CTA was read as 1. No pulmonary embolism. 2. 1.8 x 1.0 and 2.1 x 0.8 cm nodules in the left upper and right upper lobes respectively. Would recommend correlation with any prior outside imaging and consider PET/CT for further evaluation. 3. Likely combination of mild atelectasis and mild pulmonary edema in the dependent lower lungs. 4. Enlargement of the central pulmonary arteries consistent with pulmonary arterial hypertension.. Knee CT was read as the following 1. Large complex left knee joint effusion with heterogeneous increased density potentially representing blood, septic arthritis or bulky reactive synovitis. Correlate with arthrocentesis. 2. 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 No fracture or other acute osseous abnormality. The patient was given [place], morphine, Zofran, and started on vancomycin and Rocephin.? Her white count was noted to be 12.1.? Troponin negative x2 the patient is being admitted to observation status on the date of service of 07/28/2022. Hospital Course: ?76-year-old female presents with complaint of pain in her left knee on 07/28 upon arrival? IR aspirated the knee and dark thick? fluid was collected, no growth so far,? patient complains of persistent pain her knee patient was seen by Orthopedics, patient does? not need any surgical intervention and recommended conservative management, ? with brace and physical therapy, the knee aspirate was sent for culture? still no growth will follow-up, and a blood culture no growth so far,? meanwhile patient started on ceftriaxone and vancomycin, patient continue to complain pain her left knee unable to participate in physical therapy, will have orthopedic surgeon recheck the patient and further recommendation to follow,? patient is allergic to codeine, However is able to tolerate Dilaudid will give short course tramadol and monitor, also flaxier 5 mg every 8 hours as needed and apply 2 Lidoderm patch on the knee and will continue to monitor, patient remains clinically stable, will continue to monitor and patient seen by orthopedic surgeon patient does not qualify for surgical intervention for her knee, patient is clinically stable will discharge patient today. patient will receive a knee brace at the long term. Time Spent with Patient Time attestation: Total time spent
== END 2022-08-03 19:50 | DRG 550 ==
LOC: ANHED 15:19 → ANH2MED 16:00
PROVIDERS: Emergency Medicine; Family Medicine; Nurse Practitioner; Admitting Provider Student in an Organized Health Care Education/Training Program; Emergency Provider Emergency Medicine; PCP Internal Medicine; Visit Provider Orthopaedic Surgery
DX: M00.862 Arthritis due to other bacteria, left knee (principal); M25.462 Effusion, left knee; R91.8 Other nonspecific abnormal finding of lung field; E78.5 Hyperlipidemia, unspecified; F41.8 Other specified anxiety disorders; I10 Essential (primary) hypertension; I48.91 Unspecified atrial fibrillation; K21.9 Gastro-esophageal reflux disease without esophagitis; Z20.822 Contact with and (suspected) exposure to COVID-19; Z90.49 Acquired absence of other specified parts of digestive tract; Z79.01 Long term (current) use of anticoagulants; G89.29 Other chronic pain; Z88.5 Allergy status to narcotic agent
CPT/HCPCS: 20610; 20611; 36415; 70450; 71045; 71275; 73502; 73562; 73700; 80053; 80202; 82565; 83735; 84439; 84443; 84480; 84484; 85025; 85380; 85610; 85730; 87040; 87070; 87075; 87205; 87426; 93005; 93971; 96361; 96365; 96366; 96367; 96375; 96376; 97110; 97162; 97165; 97530; 97535; 99285; A9270; C9803; G0378; J0131; J0696; J1170; J2270; J2405; J3370; J7030; J7040; Q9967